=== PATIENT | male | born 1990 | race African-American/Black ===

== ENCOUNTER 2022-10-28 03:21 | Emergency (ER) | payer OTHER ==
[~2022-10-28] VITALS: Ht 185.4 cm; Wt 113.0 kg
[2022-10-28 03:35] VITALS: TEMP 98.5
[2022-10-28 04:06] VITALS: O2SAT 97
[2022-10-28] MEDS: ALPRAZolam 0.5 MG TAB PO ONE ×3 (04:15→04:32)
[2022-10-28 04:18] VITALS: BP 156/74
== END 2022-10-28 05:02 | disposition home or self-care (01) ==
LOC: M ED 03:21
DX: R04.0 Epistaxis (principal)

== ENCOUNTER 2022-10-29 16:14 | Emergency (ER) | payer OTHER ==
[~2022-10-29] VITALS: Ht 182.9 cm; Wt 97.8 kg
[2022-10-29] MEDS ORDERED: ALPRAZolam 0.5 MG TAB PO ONE (18:10)
[2022-10-29 18:30] LABS: BASO # 0.1 10^3/uL (0.0-0.2); BASO % 0.5 % (0.0-1.0); EOS % 0.3 % (0.0-3.0); HEMATOCRIT 46.8 % (42.0-52.0); HEMOGLOBIN 15.7 g/dl (13.5-17.5); LYMPH # 2.1 10^3/uL (1.5-5.0); LYMPH % 22.3 % (24.0-44.0); MEAN CORPUSCULAR HEMOGLOBIN 30.4 pg (27.0-33.0); MEAN CORPUSCULAR HGB CONC 33.5 g/dl (32.0-36.5); MEAN CORPUSCULAR VOLUME 90.5 fl (80.0-96.0); MONO # 0.5 10^3/uL (0.0-0.8); MONO % 5.3 % (2.0-8.0); NEUTROPHILS # 6.7 10^3/uL (1.5-8.5); NEUTROPHILS % 71.3 % (36.0-66.0); PLATELET COUNT, AUTOMATED 176 10^3/uL (150-450); RED BLOOD COUNT 5.17 10^6/uL (4.30-6.10); WHITE BLOOD COUNT 9.4 10^3/uL (4.0-10.0)
[2022-10-29] MEDS ORDERED: KETOROLAC 60MG 2ML VIAL IM ONE (19:25)
[2022-10-29 19:41] VITALS: BP 125/80; TEMP 98.5; O2SAT 100
== END 2022-10-29 19:42 | disposition home or self-care (01) ==
LOC: M ED 16:14
DX: R04.0 Epistaxis (principal); F10.10 Alcohol abuse, uncomplicated
CPT/HCPCS: 85025; 96372; 99283; J1885